=== PATIENT | female | born 1985 | race Hispanic/Latino ===

== ENCOUNTER 2024-04-27 12:32 | Emergency (ER) | payer OTHER ==
[~2024-04-27] VITALS: Ht 170.2 cm; Wt 106.6 kg
[~2024-04-27 12:32] MED LIST: CEPHALEXIN500 MG PO; ONDANSETRON ODT4 MG PO
[2024-04-27 12:35] VITALS: PULSE 71; RESP 15; TEMP 99.1; O2SAT 99
== END 2024-04-27 13:36 | disposition home or self-care (01) ==
LOC: ER 12:45
DX: R50.9 Fever, unspecified (principal); S83.8X2A Sprain of other specified parts of left knee, initial encounter; X58.XXXA Exposure to other specified factors, initial encounter; Y92.89 Other specified places as the place of occurrence of the external cause; E03.9 Hypothyroidism, unspecified; K21.9 Gastro-esophageal reflux disease without esophagitis
CPT/HCPCS: 99282

== ENCOUNTER 2024-10-07 07:32 | Emergency (ER) | payer MEDICARE, OTHER ==
[~2024-10-07] VITALS: Ht 170.2 cm; Wt 106.6 kg
[2024-10-07 07:40] VITALS: TEMP 98.2
[2024-10-07] MEDS ORDERED: MAGNESIUM/ALUMINUM/SIMETHICONE 30 ML UDC PO ONE (08:00)
[2024-10-07] MEDS ORDERED: BELLADONNA ALK/PHENOBARBITAL 5 ML UDC PO ONE (08:00)
[2024-10-07] MEDS ORDERED: LIDOCAINE VISC 2% SOLN 15 ML UDC PO ONE (08:00)
[2024-10-07] MEDS: ONDANSETRON HCL 4 MG ORAL DISINTEGRATING TAB PO ONE (08:10)
[2024-10-07] MEDS: DONNATAL/LIDOCAINE/MAALOX 30 ML SUSP PO ONE (08:41)
[2024-10-07 08:45] VITALS: PULSE 55; RESP 18; O2SAT 100
[2024-10-07] MEDS ORDERED: PANTOPRAZOLE SO40 MG PO (09:00)
[2024-10-07] MEDS ORDERED: ONDANSETRON ODT4 MG PO (09:00)
[2024-10-07] MEDS ORDERED: DICYCLOMINE HCL20 MG PO (09:00)
== END 2024-10-07 09:27 | disposition home or self-care (01) ==
LOC: ER 07:35
DX: R10.13 Epigastric pain (principal); K29.70 Gastritis, unspecified, without bleeding; R11.2 Nausea with vomiting, unspecified; K21.9 Gastro-esophageal reflux disease without esophagitis; E03.9 Hypothyroidism, unspecified
CPT/HCPCS: 99283; Q0162